=== PATIENT | male | born 1950 | race Caucasian/White ===

== ENCOUNTER 2017-05-22 15:21 | Outpatient (CLI) | payer OTHER | END 2017-05-22 15:22 | disposition home or self-care (01) | LOC: BICRAD 15:21 | PROVIDERS: ATTEND Family Medicine | DX: R06.02 Shortness of breath (principal); R05 Cough; I70.0 Atherosclerosis of aorta | CPT/HCPCS: 71046 ==

== ENCOUNTER 2019-04-18 10:54 | Outpatient (CLI) | payer MEDICARE | END 2019-04-18 10:55 | disposition home or self-care (01) | LOC: CTENTCT 10:54 | PROVIDERS: ATTEND Otolaryngology Plastic Surgery within the Head & Neck | DX: J32.8 Other chronic sinusitis (principal) | CPT/HCPCS: 70486 ==

== ENCOUNTER 2021-05-12 14:27 | Outpatient (CLI) | payer MEDICARE | END 2021-05-12 14:28 | disposition home or self-care (01) | LOC: BICRAD 14:27 | PROVIDERS: ATTEND Family Medicine | DX: M16.11 Unilateral primary osteoarthritis, right hip (principal) ==

== ENCOUNTER 2021-11-19 07:36 | Outpatient (CLI) | payer MEDICARE ==
[2021-11-19] MEDS ORDERED: Iopamidol 370 76% 100 ML VIAL ONE (12:52)
== END 2021-11-19 07:37 | disposition home or self-care (01) ==
LOC: CT 07:36
PROVIDERS: ATTEND Family Medicine
DX: I72.8 Aneurysm of other specified arteries (principal); I65.1 Occlusion and stenosis of basilar artery
CPT/HCPCS: 70496; 82565; Q9967